=== PATIENT | female | born 1985 | race Two or more races ===

== ENCOUNTER 2024-07-21 10:12 | Outpatient (REF) | payer MEDICAID, SELFPAY ==
--- OUTSIDE RECORDS SUMMARY | 2024-07-21 10:40 | XMS_ITS | Encounter Summary ---
Author Organization [employer] Address [address] [facility] 7[address] [place] [address] Care Team Providers Care Metal Finish Inspector Name Role Phone Name, Teofilo POSADA Primary Care Provider [phone] Reason for Visit * Reason Onset Date Comments CHART PREP 07/18/2024 Encounter Details Date Type Department Care Team ([facility] st Contact Info) Description 07/18/2024 Telephone [facility] MEDICINE [address] [place], [place] [phone] Adela Estrada, [facility] [address] [place], [place] [phone] CHART PREP Social History Tobacco Use Types Packs/Day Years Used Date Smoking Tobacco: Never Passive Smoke Exposure: Never Smokeless Tobacco: Never Alcohol Use Standard Drinks/Week Comments Never 0 (1 standard drink = 0.6 oz pur e alcohol) Depression Answer Date Recorded Patient Health Questionnaire-9 Score 0 07/03/2024 Patient Health Questionnaire-9 Score 0 07/03/2024 Last PHQ-9: Questionnaire Data Not on file 0 07/03/2024 Housing Stability Answer Date Recorded What is your housing situation today? I have rafael haque 07/03/[address] you li ve. Do you have problems with any of the following? None of the above 07/03/2024 Food Insecurity Answer Date Recorded Within the past 12 months, y ou worried that your food would run out before you got money to buy more: Never True 07/03/2024 Within the past 12 months,th e food you bought just didn't last and you didn't have enough money to get more: Never True Transportation Answer Date Recorded In the past 12 months, has l ack of transportation kept you from medical appts, meetings, work or from getting things needed for daily living? No 07/03/2024 Utilities Answer Date Recorded In the past 12 months, has t he electric, gas, oil or water company threatened to shut off services in your home? 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 Not on file Not on file documented as of this encounter Miscellaneous Notes * Telephone Encounter - Yahir Decker [place] - 07/18/2024 9:49 AM EDT Chart Prep Labs: not done from 07/03/24 T/C for lab reminder Images: not done please have pt call [phone] to schedule mammo Referrals: not applicable Vaccines due: Covid Screenings: pap smear and LMP Overdue care gaps: Tobacco documented in this encounter Plan of Treatment Upcoming Encounters Date Type Department Care Team (Late st Contact Info) Description 10/22/2024 9:45 AM EDT Office Visit [facility] MEDICINE [address] [place] [address] NameTeofilo MD [address] [place] [address] documented as of this encounter Visit Diagnoses Not on filedocumented in this encounter Additional Health Concerns Assessment Noted Time PHQ-9 Depression Total Score: 0 07/04/19 25 11:00 AM EDT documented as of this encounter Care Teams Metal Finish Inspector Relationship Specialty Start Date End Date Teofilo Lutz MD [address] [place] [address] PCP - General Internal Medicine 07/03/24 documented as of this encounter
--- OUTSIDE RECORDS SUMMARY | 2024-07-21 10:40 | XMS_ITS | Encounter Summary ---
Author Organization [employer] Address [address] [facility] 7t [place] [address] Care Team Providers Care Crossbar Frame Wirer Name Role Phone Name, Teofilo POSADA Primary Care Provider Reason for Visit * Reason Comments Gynecologic Exam Encounter Details Date Type Department Care Team (Latest Contact Info) Description 07/21/2024 10:00 AM EDT Procedure Visit [facility] MEDICINE [address] [place], [place] [phone] Adela Estrada, [facility] [address] [place], [place] [phone] Cervical cancer screening (Primary Dx) Social History Tobacco Use Types Packs/Day Years [...] Access Q2 Not on file 07/03/2024 Comments No Sex and Gender Information Value Date Recorded [...] on file documented as of this encounter Last Filed Vital Signs Vital Sign Reading Time Taken Comments Blood Pressure 136/79 07/21/2024 9:48 AM EDT Pulse 60 07/21/2024 9:48 AM EDT Temperature 36.4 ??C (97.6 ??F) 07/21/2024 9:48 AM ED T Respiratory Rate 20 07/21/2024 9:48 AM EDT Oxygen Saturation - - Inhaled Oxygen Concentration - - Weight 70.7 kg (155 lb 12.8 oz) 07/21/2024 9:48 AM EDT Height 154.9 cm (5' 1 ) 07/21/2024 9:48 AM EDT Body Mass Index 29.44 07/21/2024 9:48 AM EDT documented in this encounter Progress Notes * Adela Estrada CNM - 07/21/2024 10:00 AM EDT Subjective Patient ID: Marialuisa Pugh is a 39 y.o. female who presents for pap No pap on file. She thinks her last one was about 3 y ago, no prior abnormal. Monthly menses x 4d. Heavier flow with cramping for 2 days. Uses heating pad which helps with pain. 3-4pads/day max. Denies vasomotor symptoms. Denies incontinence symptoms. Mammogram ordered, she thinks she has upcoming appointment. 1 AMAB partner x 25y, no safety concerns. Happy with tubal ligation, not planning in the next year. Review of Systems Genitourinary: Negative for dyspareunia, dysuria, frequency, genital sores, hematuria, menstrual problem, pelvic pain, urgency, vaginal bleeding, vaginal discharge and vaginal pain. No abnormal pap, no abnormal bleeding, no breast pain, no breast mass, no nipple discharge Objective BP 136/79 (BP Location: Left arm, Patient Position: Sitting, BP Cuff Size: Adult) Pulse 60 Temp97.6 ??F (36.4 ??C) (Temporal) Resp 20 Ht 5' 1 (1.549 m) Wt 155 lb 12.8 oz (70.7 kg) LMP 07/11/2024 (Exact Date) BMI 29.44 kg/m?? Physical Exam Constitutional: Appearance: Normal appearance. Chest: Breasts: Right: Normal. No swelling, bleeding, inverted nipple, mass, nipple discharge, skin change or tenderness. Left: Normal. No swelling, bleeding, inverted nipple, mass, nipple discharge, skin change or tenderness. Abdominal: General: A surgical scar is present. Genitourinary: General: Normal vulva. Labia: Right: No rash, tenderness, lesion or injury. Left: No rash, tenderness, lesion or injury. Vagina: Normal. No signs of injury and foreign body. No vaginal discharge, erythema, tenderness, bleeding or lesions. Cervix: No cervical motion tenderness, discharge, friability, lesion, erythema, cervical bleeding or eversion. Uterus: Normal. Not enlarged and not tender. Adnexa: Right adnexa normal and left adnexa normal. Right: No mass, tenderness or fullness. Left: No mass, tenderness or fullness. Lymphadenopathy: Upper Body: Right upper body: No supraclavicular or axillary adenopathy. Left upper body: No supraclavicular or axillary adenopathy. Neurological: Mental Status: She is alert. Psychiatric: Mood and Affect: Mood normal. Behavior: Behavior normal. Assessment/Plan Diagnoses and all orders for this visit: Cervical cancer screening - Pap Smear Cotest today. Repeat 5 y if normal/HPV negative. Will contact with results. Routine mammography. Let me know if cramping or bleeding worsens with periods. documented in this encounter Plan of Treatment Upcoming Encounters Date Type Department Care Team (Late st Contact Info) Description 10/22/2024 9:45 AM EDT Office Visit [facility] MEDICINE [address] [place] [phone] Name, MD Teofilo [address] [place] [phone] Scheduled Orders Name Type Priority Associated Diagnoses Orde r Schedule Pap Smear Pathology and Cytology Routine Cervical cancer screening Ordered: 07/21/2024 documented as of this encounter Visit Diagnoses Diagnosis Cervical cancer screening- Primary Screening for malignant neoplasm of the cervix documented in this encounter Additional Health Concerns Assessment Noted Time PHQ-9 Depression Total Score: 0 07/04/19 25 11:00 AM EDT documented as of this encounter Care Teams Crossbar Frame Wirer Relationship Specialty Start Date End Date Name, MD Teofilo [address] [place] [id number] PCP - General Internal Medicine 07/03/24 documented as of this encounter
--- OUTSIDE RECORDS SUMMARY | 2024-07-21 10:40 | XMS_ITS | Clinical Summary ---
Author Organization [employer] Address [address] [facility] 7t [place] [address] Care Team Providers Care Production Maintenance Mechanic Name Role Phone NameTeofilo MD Primary Care Provider [phone] Allergies No known active allergies Medications Multiple Vitamins-Iron (Daily Holden Multivitamin/Ir on) tablet One tab po daily 5 Active docusate sodium (Colace) 100 MG capsule Take 1 tab po bid prn constipation 60 capsule 3 5 Active Encounters Date Type Department Care Team Description 07/21/2024 10:00 AM EDT Procedure Visit [address] [address] Adela Estrada CNM Cervical cancer screening (Primary Dx) 07/21/2024 Travel 07/18/[address] [address] Adela Estrada CNM CHART PREP 07/11/[address] [address] Ignacia Brooks [place] september recalls 07/03/2024 10:45 AM EDT Office Visit [address] [address] Teofilo Lutz MD Drug-induced constipation (Primary Dx); Bariatric surgery status; Need for hepatitis C screening test; Screening for diabetes mellitus (DM); Screening for cholesterol level; Screening for cervical cancer; Encounter for screening for malignant neoplasm of breast, unspecified screening modality; History of anemia; Skin lesion 07/03/2024 Travel 06/24/2024 Patient Outreach [facility] MEDICINE [address] [place] [address] Teofilo Lutz MD Pre-visit Planning ((Unable to reach for PVP screening and or LVM)) 05/23/2024 Population Health Risk Score [facility] Care [facility] () [address] [address] Provider, Population Health Generic from Last 3 Months Immunizations Name Administration Dates Next Due Tdap 07/03/2024 Family History Medical History Relation Name Comments Diabetes type II Father Liver cancer Father Alcohol abuse Mother Diabetes type II Mother Uterine cancer Sister Breast cancer Neg Hx Colon cancer Neg Hx Ovarian cancer Neg Hx Relation Name Status Comments Father Mother Sister Alive Social History Tobacco Use Types Packs/Day Years Used Date Smoking Tobacco: Never Passive Smoke Exposure: Never Smokeless Tobacco: Never Tobacco Cessation:Counseling Given: Not Answered Alcohol Use Standard Drinks/Week Comments Never 0 [...] file Not on file Not on file Last Filed Vital Signs Vital Sign Reading [...] Mass Index 29.44 07/21/2024 9:48 AM EDT Plan of Treatment Upcoming Encounters Date Type Department Care Team (Late st Contact Info) Description 10/22/2024 9:45 AM EDT Office Visit [facility] MEDICINE [address] [place] [address] Name, MD Teofilo [address] [place] [address] Health Maintenance Due Date Last Done Comments HIV Screening 1984 Hepatitis C Screening 2002 Hepatitis B Vaccines (1 of 3 - 19+ 3-dose series) 2003 Pap Smear 2005 Cervical Cancer Screening 2014 HPV/Cotest 2014 COVID-19 Vaccine ( - 2023-2 5 season) 2023 Influenza Vaccine (#1) 2023 Mammogram 2024 Alcohol/Substance Use Screening 07/03/2025 07/03/2024 Depression Screening 07/03/2025 07/03/2024, 07/03/2024 SDOH Screening 07/03/2025 07/03/2024 Family Planning (PISQ) 07/21/2025 07/21/2024 Tobacco Screening 07/21/2025 07/21/2024 Zoster Vaccines (1 of 2) 2034 DTaP/Tdap/Td Vaccines (2 - T d or Tdap) 07/03/2034 07/03/2024 RSV Patients and Patients Aged 60 years or older (1 - 1-dose 75+ series) 2059 HIB Vaccines Aged Out No longer eligi ble based on patient's age to complete this topic HPV Vaccines Aged Out No longer eligi ble based on patient's age to complete this topic Hepatitis A Vaccines Aged Out No long er eligible based on patient's age to complete this topic IPV Vaccines Aged Out No longer eligi ble based on patient's age to complete this topic Meningococcal Vaccine Aged Out No hay tara eligible based on patient's age to complete this topic Pneumococcal Vaccine: Pediatrics (0 to 5 Years) and At-Risk Patients (6 to 49) Years) Aged Out No longer eligible b ased on patient's age to complete this topic RSV under 20 months Aged Out No longe r eligible based on patient's age to complete this topic Rotavirus Vaccines Aged Out No longer eligible based on patient's age to complete this topic Insurance [facility] C3 Care Teams Production Maintenance Mechanic Relationship Specialty Start Date End Date Name, MD Teofilo [address] [place] [address] PCP - General Internal Medicine 07/03/24
--- OUTSIDE RECORDS SUMMARY | 2024-07-21 10:40 | XMS_ITS | Encounter Summary ---
Author Organization [employer] Address [address] [facility] 7t [place] [address] Care Team Providers Care Pressing Machine Tender Name Role Phone Name, Teofilo POSADA Primary Care Provider [phone] Encounter Details Date Type Department Care Team (Latest Contact Info) Description 07/21/2024 Travel Social History Tobacco Use Types Packs/Day Years [...] on file documented as of this encounter Plan of Treatment Upcoming Encounters Date Type Department Care Team (Late st Contact Info) Description 10/22/2024 9:45 AM EDT Office Visit [facility] MEDICINE [address] [place] [phone] Name, MD Teofilo [address] [place] [phone] documented as of this encounter Visit Diagnoses Not on filedocumented in this encounter Additional Health Concerns Assessment Noted Time PHQ-9 Depression Total Score: 0 07/04/19 11:00 AM EDT documented as of this encounter Care Teams Pressing Machine Tender Relationship Specialty Start Date End Date Name, MD Teofilo [address] [place] [id number] PCP - General Internal Medicine 07/03/24 documented as of this encounter
== END 2024-07-21 10:13 | disposition home or self-care (01) ==
LOC: HO.HHCL 10:12
PROVIDERS: Visit Provider Internal Medicine Geriatric Medicine
DX: Z13.89 Encounter for screening for other disorder (principal)

== ENCOUNTER 2024-07-21 17:27 | Outpatient (REF) | payer MEDICAID, SELFPAY ==
[2024-07-21 11:40] LABS: MANUAL DIFF FLAG NO
[2024-07-21 11:52] LABS: Basophils Percent Auto 0.8 % (0-2); Eosinophils Percent Auto 0.8 % (0-4); Hematocrit 35.8 % (37.0-47.0); Hemoglobin 11.4 g/dl (12.0-16.0); Imm Gran Abs Auto 0.01 X10*3/uL (0.00-0.03); Imm Gran Pct Auto 0.2 % (0.0-0.4); Lymphocytes Absolute Auto 1.6 X10*3/uL (1.2-4.9); Lymphocytes Percent Auto 33.3 % (20-40); Mean Corpuscular HGB Conc 31.8 g/dl (31.0-35.0); Mean Corpuscular Hemoglobin 27.8 pg (27.0-33.0); Mean Corpuscular Volume 87.3 fL (80.0-98.0); Mean Platelet Volume 10.2 fL (9.4-12.3); Monocytes Absolute Auto 0.3 X10*3/uL (0.1-1.2); Monocytes Percent Auto 6.6 % (2-11); Neutrophils Absolute Auto 2.8 x10*3/uL (2.0-8.3); Neutrophils Percent Auto 58.3 % (45-73); Platelet Count 333 X10*3/uL (160-400); Red Cell Distribution Width 13.3 % (11.0-16.0); White Blood Count 4.8 X10*3/uL (4.8-10.8)
[2024-07-21 12:14] LABS: Alanine Aminotransferase 20 U/L (0-31); Albumin Level 4.1 g/dL (3.5-5.0); Anion Gap 11 (12-20); Aspartate Amino Transferase 29 U/L (5-31); Bilirubin Total 0.3 mg/dL (0.0-1.0); Blood Urea Nitrogen 9 mg/dL (9-16); Calcium 8.8 mg/dL (8.4-10.2); Carbon Dioxide 28 mmol/L (22-29); Chloride 104 mmol/L (96-108); Cholesterol 184 mg/dL (<200); Estimated Glomerular Filt Rate > 60; Glucose Random 87 mg/dL (60-115); HDL Cholesterol 88 mg/dL (>40); Iron 36 mcg/dL (30-160); LDL Cholesterol Calculated 88 mg/dL (<100); Percent Iron Saturation 10 % (15-50); Potassium 4.2 mmol/L (3.3-5.1); Sodium 139 mmol/L (135-145); Total Iron Binding Capacity 372 mcg/dL (228-428); Total Protein 7.2 g/dL (6.5-8.0); Triglycerides 43 mg/dL (<150); Unsaturated Iron Binding 336 ug/dL
[2024-07-21 12:18] LABS: Parathyroid Hormone Intact 109.8 pg/mL (8.7-77.1)
[2024-07-21 12:31] LABS: Alkaline Phosphatase 57 U/L (39-117); Ferritin 6 ng/mL (10-250); Vitamin D 25-OH Total 32.3 ng/mL (>30)
--- OUTSIDE RECORDS SUMMARY | 2024-07-21 17:29 | XMS_ITS | Clinical Summary ---
Author Organization [employer] Address [address] [facility] 7t [place] [address] Care Team Providers Care Grain Inspector Name Role Phone NameTeofilo MD Primary Care Provider [phone] Allergies No known active allergies Medications Multiple Vitamins-Iron (Daily Holden Multivitamin/Ir on) tablet One tab po daily 5 Active docusate sodium (Colace) 100 MG capsule Take 1 tab po bid prn constipation 60 capsule 3 5 Active Encounters Date Type Department Care Team Description 07/21/2024 10:00 AM EDT Procedure Visit [address] [address] Adela Estrada CNM Cervical cancer screening (Primary Dx) 07/21/2024 Travel 07/18/[address] [address] Adela Estrada CNM CHART PREP 07/11/[address] [address] Ignacia Brooks [place] september recalls 07/03/2024 10:45 AM EDT Office Visit [address] [address] Teofilo uLtz MD Drug-induced constipation (Primary Dx); Bariatric surgery status; Need for hepatitis C screening test; Screening for diabetes mellitus (DM); Screening for cholesterol level; Screening for cervical cancer; Encounter for screening for malignant neoplasm of breast, unspecified screening modality; History of anemia; Skin lesion 07/03/2024 Travel 06/24/2024 Patient Outreach [facility] [address] [place] [phone] Teofilo Lutz MD Pre-visit Planning ((Unable to reach for PVP screening and or LVM)) 05/23/2024 Population Health Risk Score [facility] () [address] [address] Provider, Population Health Generic from [...] Description 10/22/2024 9:45 AM EDT Office Visit [facility] [address] [place] [address] Name, MD Teofilo [address] [place] [address] Health Maintenance Due Date Last Done Comments [...] on patient's age to complete this topic Procedures Procedure Name Priority Date/Time Associated Diagnosis Comments FERRITIN Routine 07/21/2024 10:15 AM EDT Bariatric surgery status History of anemia PTH, INTACT WITHOUT CALCIUM Routine 07/21/2024 10:15 AM EDT Bariatric surgery status VITAMIN D,25-OH,TOTAL,IA Routine 07/21/2024 10:15 AM EDT Bariatric surgery status LIPID PANEL, STANDARD Routine 07/21/2024 10:15 AM EDT Screening for cholesterol level COMPREHENSIVE METABOLIC PANEL Routine 07/21/2024 10:15 AM EDT Bariatric surgery status Screening for diabetes mellitus (DM) IRON AND TOTAL IRON BINDING CAPACITY Routine 07/21/2024 10:15 AM EDT Bariatric surgery status CBC WITH AUTO DIFFERENTIAL Routine 07/21/2024 10:15 AM EDT Bariatric surgery status History of anemia from Last 3 Months Results * Vitamin D, 25-Hydroxy, Total, Immunoassay (07/21/2024 10:15 AM EDT) Vitamin D 25-OH Total 32.3 >30 ng/mL [facility] Comment: Health Based Reference Values*< 20 ??ng/mL ??Rlcjajeey34-29 ng/mL ??Insufficient> 30 ??ng/mL ??Sufficient*Jorge Alberto RAMIREZ. N Engl J Med. 2007;357:266-280There is no well-established upper level of normal vitamin Dlevels. Some laboratories use 50 ng/mL as an upper limit ofnormal. However, toxicity is patient-dependent and may occurat any level. Careful correlation with the patient'spresentation is necessary and, if there is concern forvitamin D toxicity, treatment should be consideredirrespective of the serum level.Care must be taken in interpreting Vitamin D results fromdifferent laboratories and methodologies. ??Published datademonstrated that results from patients undergoinghemodialysis may show a negative bias when tested withvarious automated 25-OH vitamin D assays when compared toLC- MS/MS.When testing samples from patients whose predominant form ofVitamin D is Vitamin D2, such as patients receiving VitaminD2 supplementation, results that are subtherapeutic shouldbe confirmed with another method such as LC-MS/MS. Blood Venous blood specimen / Unknown 07/21/2024 10:15 AM EDT 07/21/2024 11:37 AM EDT us Teofilo Name LAB BLOOD ORDERABLES Final Resul t [facility] [address] [place] [address] [phone] * (ABNORMAL) CBC auto differential (07/21/2024 10:15 AM EDT) White Blood Count 4.8 4.8 - 10.8 X10*3/uL [facility] Red Blood Count 4.10(L) 4.20 - 5.50 X10*6/uL [facility] Hemoglobin 11.4(L) 12.0 - 16.0 g/dl [facility] Hematocrit 35.8(L) 37.0 - 47.0 % [facility] Mean Corpuscular Volume 87.3 80.0 - 98.0 fL [facility] Mean Corpuscular Hemoglobin 27.8 27.0 - 33.0 pg [facility] Mean Corpuscular HGB Conc 31.8 31.0 - 35.0 g/dl [facility] Red Cell Distribution Width 13.3 11.0 - 16.0 % [facility] Platelet Count 333 160 - 400 X10*3/uL [facility] Mean Platelet Volume 10.2 9.4 - 12.3 fL [facility] Neutrophils Percent Auto 58.3 45 - 73 % [facility] Imm Gran Pct Auto 0.2 0.0 - 0.4 % [facility] Lymphocytes Percent Auto 33.3 20 - 40 % [facility] Monocytes Percent Auto 6.6 2 - 11 % [facility] Eosinophils Percent Auto 0.8 0 - 4 % [facility] Basophils Percent Auto 0.8 0 - 2 % [facility] NRBC Pct Auto 0.0 0.0 - 0.2 /100WBC [facility] Neutrophils Absolute Auto 2.8 2.0 - 8.3 x10*3/uL [facility] Imm Gran Abs Auto 0.01 0.00 - 0.03 X10*3/uL [facility] Lymphocytes Absolute Auto 1.6 1.2 - 4.9 X10*3/uL [facility] Monocytes Absolute Auto 0.3 0.1 - 1.2 X10*3/uL [facility] Eosinophils Absolute Auto 0.0 0.0 - 0.4 X10*3/uL [facility] Basophils Absolute Auto 0.0 0.0 - 0.2 X10*3/uL [facility] NRBC Abs Auto 0.000 0.0 - 0.012 X10*3/uL [facility] Blood Venous blood specimen / Unknown 07/21/2024 10:15 AM EDT 07/21/2024 11:37 AM EDT us Teofilo Lutz MD LAB BLOOD ORDERABLES Final Resul t Performing Organization Address [facility] de Phone Number [facility] [address] [place] [phone] * (ABNORMAL) Iron And Total Iron Binding Capacity (07/21/2024 10:15 AM EDT) Iron 36 30 - 160 mcg/dL [facility] Total Iron Binding Capacity 372 228 - 428 mcg/dL [facility] Percent Iron Saturation 10(L) 15 - 50 % [facility] Unsaturated Iron Binding 336 ug/dL [facility] Blood Venous blood specimen / Unknown 07/21/2024 10:15 AM EDT 07/21/2024 11:37 AM EDT us Teofilo Lutz MD LAB BLOOD ORDERABLES Final Resul t Performing Organization Address [facility] de Phone Number [facility] [address] [place] [phone] * (ABNORMAL) PTH, Intact Without Calcium (07/21/2024 10:15 AM EDT) Parathyroid Hormone, Intact 109.8(H) 8.7 - 77.1 pg/mL [facility] Blood Venous blood specimen / Unknown 07/21/2024 10:15 AM EDT 07/21/2024 11:37 AM EDT us Teofilo Lutz MD LAB BLOOD ORDERABLES Final Resul t Performing Organization Address [facility] Co de Phone Number [facility] [address] [place] [phone] * (ABNORMAL) Ferritin (07/21/2024 10:15 AM EDT) Ferritin 6(L) 10 - 250 ng/mL [facility] Blood Venous blood specimen / Unknown 07/21/2024 10:15 AM EDT 07/21/2024 11:37 AM EDT us Teofilo Lutz MD LAB BLOOD ORDERABLES Final Resul t Performing Organization Address City/[facility] Co de Phone Number [facility] [address] [place] [phone] * Lipid Panel, Standard (07/21/2024 10:15 AM EDT) Triglycerides 43 <150 mg/dL [facility] Comment:Desirable Triglyceri de: less than 150 mg/dLBorderline High Triglyceride 150-199 mg/dLHigh Triglyceride: 200-499 mg/dLVery High Triglyceride: greater than or equal to 5OO mg/dL Cholesterol 184 <200 mg/dL [facility] Comment:Desirable Cholestero l: less than 200 mg/dLBorderline High Cholesterol: 200-239 mg/dLHigh Cholesterol: greater than 239 mg/dL LDL Cholesterol Calculated 88 <100 mg/dL [facility] Comment:Desirable LDL: less than 100 mg/dLNear Optimal/Above Optimal LDL: 110- 129 mg/dLBorderline High LDL: 130-159 mg/dLHigh LDL: 160-189 mg/dLVery High LDL: greater than or equal to 190 mg/dL HDL Cholesterol 88 >40 mg/dL [facility] Comment:Desirable HDL: great er than 40 mg/dL Note: This HDL assay may give artificially low results in patients with liver disease. Blood Venous blood specimen / Unknown 07/21/2024 10:15 AM EDT 07/21/2024 11:37 AM EDT us Teofilo Lutz MD LAB BLOOD ORDERABLES Final Resul t Performing Organization Address City/[facility] Co de Phone Number [facility] [address] [place] [phone] * (ABNORMAL) Comprehensive Metabolic Panel (07/21/2024 10:15 AM EDT) Sodium 139 135 - 145 mmol/L [facility] Potassium 4.2 3.3 - 5.1 mmol/L [facility] Chloride 104 96 - 108 mmol/L [facility] Carbon Dioxide 28 22 - 29 mmol/L [facility] Anion Gap 11(L) 12 - 20 [facility] Urea Nitrogen (BUN) 9 9 - 16 mg/dL [facility] Creatinine, Serum 0.65 0.5 - 1.4 mg/dL [facility] Creatinine Clr Calc Pharmacy TNP [facility] Comment:Unable to calculate eCrCL; all parameters not provided. Estimated Glomerular Filt Rate >60 [facility] Comment:Chronic Kidney Disea se: Estimated GFR < 60 mL/min/1.78s2Ouvecn Kidney Disease: Estimated GFR < 15 mL/min/1.73m2 Glucose 87 60 - 115 mg/dL [facility] Calcium 8.8 8.4 - 10.2 mg/dL [facility] Bilirubin, Total 0.3 0.0 - 1.0 mg/dL [facility] Aspartate Amino Transferase 29 5 - 31 U/L [facility] Alanine Aminotransferase 20 0 - 31 U/L [facility] Total Protein 7.2 6.5 - 8.0 g/dL [facility] Albumin Level 4.1 3.5 - 5.0 g/dL [facility] Alkaline Phosphatase 57 39 - 117 U/L [facility] Blood Venous blood specimen / Unknown 07/21/2024 10:15 AM EDT 07/21/2024 11:37 AM EDT us Teofilo Lutz MD LAB BLOOD ORDERABLES Final Resul t [facility] [address] [place] [phone] from Last 3 Months Insurance [facility] C3 Care Teams Grain Inspector Relationship Specialty Start Date End Date Name, MD Teofilo [address] [place] [phone] PCP - General Internal Medicine 07/03/24
--- OUTSIDE RECORDS SUMMARY | 2024-07-21 17:29 | XMS_ITS | Encounter Summary ---
Author Organization [employer] Address [address] [facility] 7t [place] [address] Care Team Providers Care Swimming Pool Maintenance Supervisor Name Role Phone Name, Teofilo POSADA Primary Care Provider [phone] Encounter Details Date Type Department Care Team [...] Office Visit [facility] [address] [place] [phone] Name, MD Teofilo [address] [place] [phone] documented as of this encounter Visit Diagnoses Not on filedocumented in this encounter Additional Health Concerns Assessment Noted Time PHQ-9 Depression Total Score: 0 07/04/19 11:00 AM EDT documented as of this encounter Care Teams Swimming Pool Maintenance Supervisor Relationship Specialty Start Date End Date Name, MD Teofilo [address] [place] [phone] PCP - General Internal Medicine 07/03/24 documented as of this encounter
--- OUTSIDE RECORDS SUMMARY | 2024-07-21 17:30 | XMS_ITS | Encounter Summary ---
Author Organization [employer] Address [address] [facility] 7t [place] [address] Care Team Providers Care Body And Fender Mechanic Name Role Phone Name, Teofilo POSADA Primary Care Provider [phone] Reason for Visit * Reason Comments Gynecologic Exam Encounter Details Date Type Department Care Team (Latest Contact Info) Description 07/21/2024 10:00 AM EDT Procedure Visit [facility] [address] [place], [place] [phone] Adela Estrada, [facility] [address] [place], [place] [phone] Cervical cancer screening (Primary Dx) Social History [...] Description 10/22/2024 9:45 AM EDT Office Visit [facility] [address] [place] [phone] Name, MD Teofilo [address] [place] [phone] Scheduled Orders Name Type Priority Associated Diagnoses [...] documented as of this encounter Care Teams Body And Fender Mechanic Relationship Specialty Start Date End Date Name, MD Teofilo [address] [place] [phone] PCP - General Internal Medicine 07/03/24 documented as of this encounter
--- OUTSIDE RECORDS SUMMARY | 2024-07-21 17:30 | XMS_ITS | Encounter Summary ---
Author Organization [employer] Address [address] [facility] 7t [place] [address] Care Team Providers Care Media Associate Name Role Phone Name, Teofilo POSADA Primary Care Provider [phone] Reason for Visit * Reason Onset Date Comments CHART PREP 07/18/2024 Encounter Details Date Type Department Care Team ([facility] st Contact Info) Description 07/18/2024 Telephone [facility] [address] [place], [place] [phone] Adela Estrada, [facility] [address] [place], [place] [phone] CHART PREP Social History Tobacco Use Types [...] Images: not done please have pt call [phone] to schedule mammo Referrals: not applicable Vaccines due: Covid Screenings: pap smear and LMP Overdue care gaps: Tobacco documented in this encounter Plan of Treatment Upcoming Encounters Date Type Department Care Team (Late st Contact Info) Description 10/22/2024 9:45 AM EDT Office Visit [facility] [address] [place] [address] NameTeofilo MD [address] [place] [address] documented as of this encounter Visit Diagnoses Not on filedocumented in this encounter Additional Health Concerns Assessment Noted Time PHQ-9 Depression Total Score: 0 07/04/19 25 11:00 AM EDT documented as of this encounter Care Teams Media Associate Relationship Specialty Start Date End Date Teofilo Lutz MD [address] [place] [address] PCP - General Internal Medicine 07/03/24 documented as of this encounter
[2024-07-22 07:30] LABS: ~Hepatitis C Antibody Nonreactive (Nonreactive)
[2024-07-24 13:56] LABS: HPV Genotype 16 Negative (Negative); HPV Genotype 18 Negative (Negative); HPV High Risk Negative (Negative)
== END 2024-07-21 17:28 | disposition home or self-care (01) ==
LOC: HO.HHCLNP 17:27
PROVIDERS: Internal Medicine Geriatric Medicine; Visit Provider Advanced Practice Midwife
DX: Z12.4 Encounter for screening for malignant neoplasm of cervix (principal); Z11.59 Encounter for screening for other viral diseases; Z13.220 Encounter for screening for lipoid disorders; Z98.84 Bariatric surgery status; Z86.2 Personal history of diseases of the blood and blood-forming organs and certain disorders involving the immune mechanism; Z13.1 Encounter for screening for diabetes mellitus
CPT/HCPCS: 80053; 80061; 82306; 82728; 83540; 83970; 85025; 86803; 87626; 88175

== ENCOUNTER 2024-08-21 15:27 | Outpatient (REF) | payer MEDICAID, SELFPAY ==
--- OUTSIDE RECORDS SUMMARY | 2024-08-21 17:58 | XMS_ITS | Encounter Summary ---
Author Organization [employer] Address [address] [facility] 7t [place] [address] Care Team Providers Care Tunnel Heading Inspector Name Role Phone Name, Teofilo POSADA Primary Care Provider [phone] Encounter Details Date Type Department Care Team (Late st Contact Info) Description 07/24/2024 Results Follow-Up [facility] [address] [place], [place] [phone] Adela Estrada, [facility] [address] [place], [place] [phone] Pap Smear Social History Tobacco Use Types Packs/Day Years [...] Upcoming Encounters Date Type Department Care Team ([facility] st Contact Info) Description 10/22/2024 9:45 AM EDT Office Visit [facility] [address] [place] [phone] NameTeofilo MD [address] [place] [address] documented as of this encounter Visit Diagnoses Not on filedocumented in this encounter Additional Health Concerns Assessment Noted Time PHQ-9 Depression Total Score: 0 07/04/19 11:00 AM EDT documented as of this encounter Care Teams Tunnel Heading Inspector Relationship Specialty Start Date End Date NameTeofilo MD [address] [place] [phone] PCP - General Internal Medicine 07/03/24 documented as of this encounter
== END 2024-08-21 15:28 | disposition home or self-care (01) ==
LOC: HO.MAMMO 15:27
PROVIDERS: PCP Internal Medicine Geriatric Medicine; Visit Provider Internal Medicine Geriatric Medicine
DX: Z12.31 Encounter for screening mammogram for malignant neoplasm of breast (principal)
CPT/HCPCS: 77063; 77067

== ENCOUNTER → 2024-08-21 15:45 | Outpatient (BNV) | payer MEDICAID, SELFPAY | PROVIDERS: PCP Internal Medicine Geriatric Medicine; Visit Provider Internal Medicine | DX: Z12.31 Encounter for screening mammogram for malignant neoplasm of breast (principal) | CPT/HCPCS: 77063; 77067 ==

== ENCOUNTER → 2024-09-03 09:32 | Outpatient (BNV) | payer MEDICAID, SELFPAY | PROVIDERS: PCP Internal Medicine Geriatric Medicine; Referring Provider Internal Medicine Geriatric Medicine; Visit Provider Internal Medicine Medical Oncology | DX: D64.9 Anemia, unspecified (principal) | CPT/HCPCS: 99204 ==